=== PATIENT | female | born 1985 | race Caucasian/White ===

== ENCOUNTER 2017-02-20 07:09 | Day surgery (SDC) | payer OTHER ==
[2017-02-20] VITALS (12 sets, daily range): BP systolic 97–127; BP diastolic 53–73; PULSE 66–87; RESP 15–20; Ht 157.5 cm; Wt 72.0 kg
[~2017-02-20] VITALS: Ht 157.5 cm; Wt 72.0 kg
[2017-02-20] MEDS ORDERED: SOD CHLORIDE 0.9% 1,000 ML IV SCH (09:30)
[2017-02-20] MEDS ORDERED: CEFAZOLIN 2 GM/50 ML (PMX) 50 ML IVPB ONE (09:30)
[2017-02-20] MEDS ORDERED: PROPOFOL 20 ML ONE (09:47)
[2017-02-20] MEDS ORDERED: MIDAZOLAM 1 MG/ML 2 ML INJ ONE (09:47)
[2017-02-20] MEDS ORDERED: LIDOCAINE 2% (SDV) 5 ML INJ ONE (09:47)
[2017-02-20] MEDS ORDERED: FENTAnyl 50 MCG/ML VIAL ONE (09:47)
[2017-02-20] MEDS ORDERED: BUPIVACAINE 0.25% (MPF) 30 ML INJ ONE (10:11)
[2017-02-20] MEDS ORDERED: ONDANSETRON 4 MG INJ ONE (10:39)
[2017-02-20] MEDS ORDERED: CEFAZOLIN 1 GM INJ ONE (10:39)
[2017-02-20] MEDS ORDERED: METOCLOPRAMIDE 10 MG INJ ONE (10:39)
[2017-02-20] MEDS ORDERED: KETOROLAC 30 MG INJ ONE (10:56)
[2017-02-20] MEDS ORDERED: FENTAnyl 50 MCG/ML VIAL IV PRN (11:00)
[2017-02-20] MEDS ORDERED: HYDROCODONE/APAP (5/325) TAB PO ONE (11:00)
[2017-02-20] MEDS ORDERED: PROCHLORPERAZINE 10 MG INJ IV PRN (11:00)
[2017-02-20] MEDS ORDERED: MEPERIDINE 25 MG INJ IV PRN (11:00)
[2017-02-20] MEDS ORDERED: ONDANSETRON 4 MG INJ IV PRN (11:00)
[2017-02-20] MEDS ORDERED: HYDROmorphONE (0.2 MG/ML) 10ML SYG IV PRN ×2 (11:00)
[2017-02-20] MEDS ORDERED: DIPHENHYDRAMINE 50 MG INJ IV PRN (11:00)
[2017-02-20] MEDS ORDERED: OXYCODONE/ACETAMINOPHEN (5/325) TAB PO PRN ×2 (11:00)
--- NOTE | 2017-02-20 11:02 | OPR ---
Date/Time of Note Date/Time of Note DATE: 02/20/17 TIME: 10:59 Operative Report Procedure Date: Feb 20, 2017 Preoperative Diagnosis left breast calcification Postoperative Diagnosis same Operation/Procedure Performed 1. left breast needle loc biopsy with 6 cm incision and 6 cm mass 2. localized adjacent tissue transfer with the use of skin flaps 12 sq cm defect 3. therapeutic injection of subcutaneous local anesthesia Surgeon see signature line Business Improvement Manager none Anesthesia Type: general Estimated Blood Loss: 10 - 50 ml's Transfusion none Specimen left breast biopsy Grafts/Implants none Complications none Pt Condition Post Procedure: stable Indications This is a 31-year-old female with left breast calcifications. She requests surgical excision. Risks alternatives benefits and percent were discussed with the patient. Patient expresses understanding consents to the operation. Procedure Description Patient taken to the OR and prepped and draped in usual sterile fashion. Surgical timeout was performed. IV antibiotics were given. After reviewing radiographic imaging curvilinear incision is made with a 15 blade in the left outer region. Dissection cautery was carried down to the area of concern identified by the needle localization. There are areas resected. This is sent for specimen. There is good hemostasis. Due to tissue defect localized adjacent tissue transfer with these of skin flaps was performed. Multilayer closure with interrupted 3-0 Vicryl was then running 4-0 Monocryl. Therapeutic subcutaneous local anesthesia is injected. Dry dressings were applied. Flo WATTS Feb 20, 2017 11:02
[2017-02-20] MEDS ORDERED: BUPIVACAINE 0.25% (MPF) 30 ML INJ INJ ONE (11:22)
== END 2017-02-20 12:33 | disposition home or self-care (01) ==
LOC: SDS 07:09 → EDBD 07:30 → SDS 12:33
PROVIDERS: ATTEND Surgery
DX: D24.2 Benign neoplasm of left breast (principal); E66.9 Obesity, unspecified
CPT/HCPCS: 14001; 19120; 84703; 88307; J0690; J1170; J1885; J2250; J2405; J2765; J3010; Z7512; Z7610

== ENCOUNTER 2017-04-17 11:33 | Emergency (ER) | payer OTHER ==
[~2017-04-17] VITALS: Ht 157.5 cm; Wt 73.5 kg
[2017-04-17 11:37] VITALS: Ht 157.5 cm; Wt 73.5 kg
[2017-04-17] MEDS ORDERED: IBUP-1542 PO (13:07)
[2017-04-17] MEDS ORDERED: IBUPROFEN 800 MG TAB PO ONE (13:30)
--- NOTE | 2017-04-17 13:48 | ERD ---
ER Documentation Chief Complaint Chief Complaint Pt presents with L ankle pain and swelling after fall. HPI Patient is a 31-year-old female with no medical problems who presents with left- sided ankle pain. She missed a step today and twisted her ankle and "heard a pop". This happened at 11 AM. She has not been able to walk on it without pain. She has had no treatment as of yet. Her primary doctor is Dr. Cindi Noonan. ROS All systems reviewed and are negative except as per history of present illness. Medications Home Meds Active Scripts Ibuprofen* (Motrin*) 600 Mg Tab, 600 MG PO Q6H Y for PAIN AND OR ELEVATED TEMP, #30 TAB Prov:CHRISTOPHE MONTAGUE MD 04/17/17 Allergies Allergies: Coded Allergies: No Known Allergy (Unverified , 02/20/17) PMhx/Soc Medical and Surgical Hx: pt denies Medical Hx History of Surgery: Yes (TUBAL LIGATION) Anesthesia Reaction: No Hx Neurological Disorder: No Hx Respiratory Disorders: No Hx Cardiac Disorders: No Hx Psychiatric Problems: No Hx Miscellaneous Medical Probl: No Hx Alcohol Use: Yes (SOCIALY) Hx Substance Use: No Hx Tobacco Use: No Smoking Status: Never smoker FmHx Family History: No diabetes Physical Exam Vitals Vital Signs Date Time Temp Pulse Resp B/P Pulse Ox O2 Delivery O2 Flow Rate FiO2 04/17/17 11:37 98.2 79 18 112/52 98 Physical Exam Const: No acute distress Head: Atraumatic Eyes: Normal Conjunctiva ENT: Normal External Ears, Nose and Mouth. Neck: Full range of motion..~ No meningismus. Resp: Clear to auscultation bilaterally Cardio: Regular rate and rhythm, no murmurs Abd: Soft, non tender, non distended. Normal bowel sounds Skin: No petechiae or rashes Back: No midline or flank tenderness Ext: Pain over the deltoid ligament of the left ankle, no medial or lateral malleolus tenderness to palpation, no knee tenderness to palpation Neur: Awake and alert Psych: Normal Mood and Affect Results 24 hrs Current Medications Medications (Trade) Dose Ordered Sig/Akthia Route PRN Reason Start Time Stop Time Status Last Admin Dose Admin Ibuprofen (Motrin) 800 mg ONCE ONCE PO 04/17/17 13:30 04/17/17 13:30 DC 04/17/17 13:23 Procedures/MDM Patient is a 31-year-old female presents with left-sided ankle pain. I believe she has an acute ankle sprain. There is no sign of fracture at this time and I do not believe she requires an x-ray. The patient was given crutches and ibuprofen. She will be discharged and will need to follow-up closely with her primary doctor within 24-48 hours. Departure Diagnosis: Primary Impression: Ankle sprain Encounter type: initial encounter Involved ligament of ankle: deltoid ligament Laterality: left Qualified Code: S93.422A - Sprain of deltoid ligament of left ankle, initial encounter Condition: Fair Patient Instructions: Self-Care for Strains and Sprains Additional Instructions: Call your primary care doctor TOMORROW for an appointment during the next 1-2 days.See the doctor sooner or return here if your condition worsens before your appointment time. CHRISTOPHE MONTAGUE MD Apr 17, 2017 13:48
== END 2017-04-17 13:28 | disposition home or self-care (01) ==
LOC: FTE 11:33
DX: S93.422A Sprain of deltoid ligament of left ankle, initial encounter (principal); X50.9XXA Other and unspecified overexertion or strenuous movements or postures, initial encounter; Y92.9 Unspecified place or not applicable
CPT/HCPCS: Z7502; Z7610; 99283